=== PATIENT | female | born 1950 | race Caucasian/White ===

== ENCOUNTER 2016-12-21 10:08 | Day surgery (SDC) | payer BC, OTHER ==
[2016-12-16 14:28] LABS: HEMATOCRIT 34.7 % (36.0-48.0); HEMOGLOBIN 12.2 g/dL (12.0-16.0)
[2016-12-16 14:43] LABS: CALCIUM, SERUM 8.6 MG/DL (8.5-10.4); CHLORIDE, SERUM 105 MMOL/L (96-112); POTASSIUM, SERUM 3.6 MMOL/L (3.5-5.3); SODIUM, SERUM 142 MMOL/L (135-148)
[2016-12-16 14:47] LABS: BUN (BLOOD UREA NITROGEN) 31 MG/DL (6-23); CO2 (CARBON DIOXIDE) 32 MMOL/L (24-34); CREATININE 1.85 MG/DL (0.55-1.02); GFR AFRICAN AMERICAN 32 ML/MIN (>=60); GFR NON AFRICAN AMERICAN 28 ML/MIN (>=60); GLUCOSE, SERUM 127 MG/DL (60-99)
--- NOTE | ~2016-12-21 | OP ---
Record Of Operation [facility] [address] [place]. [address] NAME: CANDICE CARTAGENA : 50 STATUS : REG [facility] [place] PAT#: [id number] AGE: 66 ADM/REG DATE : 12/21/16 MR#: [id number] REPORT SERV DATE: 12/21/16 DICTATED BY: ZULAY RUBIO DATE: 12/21/16 REPORT STATUS : Draft TRANSCRIBED BY: JOHNNY DATE: 12/21/16 DATE OF PROCEDURE: 12/21/2016 PREOPERATIVE DIAGNOSIS: Left cubital tunnel syndrome. POSTOPERATIVE DIAGNOSIS: Left cubital tunnel syndrome. PROCEDURES: Left cubital tunnel in situ release. SURGEON: Zulay Rubio M.D. FLOUR WORKER: Alea. ANESTHESIA: General. ESTIMATED BLOOD LOSS: Less than 2 mL. COMPLICATIONS: None. DISPOSITION: The patient tolerated the procedure well and was brought to recovery room in stable condition. PROCEDURE NOTE: The patient was brought to the operating room and placed in supine position. After general anesthesia was administered, a pneumatic tourniquet was placed around the left proximal arm and left upper extremity. After the patient was put under general anesthesia, the left upper extremity distal to the tourniquet was prepped and draped in the usual sterile manner. A surgical timeout was performed. All were in agreement. Esmarch was used to exsanguinate the extremity and tourniquet was inflated. A 15 blade scalpel was then used to make a 5 cm longitudinal incision centered over the cubital tunnel which was approximately 2 cm posterior to the medial epicondyle. After the skin was incised, blunt and sharp dissection was carried out through the adipose tissue taking care to protect superficial nerves in the area. The cubital tunnel retinaculum was carefully incised taking care to protect the ulnar nerve. More distally, the confluence of the two heads of the FCU were divided and more proximally, a portion of the intermuscular septum and superficial fascia of the arm were divided. In doing so, the ulnar nerve appeared well decompressed, and the wound was irrigated and skin was closed with deep and running Monocryl suture. Steri-Strips and sterile dressing was applied. Tourniquet was released. The arm was placed in a sling, and the patient was taken out of general anesthesia, and was ready to be brought to recovery room. RACHEL/MODL Zulay Record Of Operation [facility] [address] [place] [address] NAME: CANDICE CARTAGENA : 50 STATUS : REG [facility] [place] PAT#: [id number] AGE: 66 ADM/REG DATE : 12/21/16 MR#: [id number] REPORT SERV DATE: 12/21/16 DICTATED BY: ZULAY RUBIO DATE: 12/21/16 REPORT STATUS : Draft TRANSCRIBED BY: [employer] DATE: 12/21/16 Ivana Rubio / [id number] CC: Ivana De Jesus M.D.
[~2016-12-21 10:08] MED LIST: AMIT25 PO; C25 PO; CORDARONE PO; COUMADIN3 MG PO; CRESTOR40 MG PO; DIOVAN HC2 PO; DIOVAN320 MG PO; EXFORGE1 TA3 PO; JANUMET XR 1001 EACH PO; L40 PO; LANTUSCART SC; LOFIB160 PO; LOFIBRA160 MG PO; LORTAB 5 PO; NITROII20C TOP; NORCO1 TA1 PO; PLAVIX PO; PRAVACHOL80 MG PO; PROAIR HFA INH; PULMICORT180 MCG INH; SYN075 PO; SYN112 PO; TOPXL100 PO; TOPXL50 PO; VITC500 PO; ZETIA PO
[2016-12-21 11:58] LABS: INTERNATIONAL NORMAL RATI 1.4 UNITS (-)
[2016-12-21 11:59] LABS: PROTIME (NOT ORD) 17.1 SEC (12.0-14.5)
== END 2016-12-21 17:19 | disposition home or self-care (01) ==
LOC: SDC 10:08
PROVIDERS: Orthopaedic Surgery Hand Surgery
PROC: 01N40ZZ Release Ulnar Nerve, Open Approach (ICD-10-PCS; principal; 2016-12-21 11:45)
DX: G56.22 Lesion of ulnar nerve, left upper limb (principal); I12.9 Hypertensive chronic kidney disease with stage 1 through stage 4 chronic kidney disease, or unspecified chronic kidney disease; E11.22 Type 2 diabetes mellitus with diabetic chronic kidney disease; N18.9 Chronic kidney disease, unspecified; I25.10 Atherosclerotic heart disease of native coronary artery without angina pectoris; I35.0 Nonrheumatic aortic (valve) stenosis; E78.5 Hyperlipidemia, unspecified; E78.00 Pure hypercholesterolemia, unspecified; J45.909 Unspecified asthma, uncomplicated; F32.9 Major depressive disorder, single episode, unspecified; G47.33 Obstructive sleep apnea (adult) (pediatric); Z95.1 Presence of aortocoronary bypass graft; Z95.2 Presence of prosthetic heart valve; Z88.6 Allergy status to analgesic agent; Z79.4 Long term (current) use of insulin; Z79.02 Long term (current) use of antithrombotics/antiplatelets; Z79.01 Long term (current) use of anticoagulants; Z79.899 Other long term (current) drug therapy; Z98.890 Other specified postprocedural states
CPT/HCPCS: 80048; 82962; 85014; 85018; 85610; 93005; J0690; J2250; J2405; J3010